=== PATIENT | male | born 1980 | race African-American/Black ===

== ENCOUNTER 2021-08-21 23:42 | Observation (INO) | payer SELFPAY ==
[2021-08-22] MEDS ORDERED: Ketorolac Tromethamine 30 MG/ML VIAL ONE (00:23)
[2021-08-22] MEDS ORDERED: Ondansetron PF 4 MG/2 ML Vial ONE ×2 (00:23→14:10)
[2021-08-22 00:44] LABS: #Basophils 0.1 10x3/uL (0.0-0.2); #Eosinphils 0.2 10x3/uL (0.0-0.5); #Monocytes 0.7 10x3/uL (0.0-1.1); %Basophils 0.6 % (0.0-2.0); %Eosinophils 1.4 % (0.0-6.0); %Lymphocytes 19.7 % (18.0-47.0); %Monocytes 6.6 % (0.0-10.0); %Neutrophils 71.4 % (40.0-75.0); Hemoglobin 15.3 g/dL (13.5-17.5); Mean Corpuscular HGB CONC 35.5 g/dL (32.0-36.0); Mean Corpuscular Hemoglobin 29.7 pg (27.0-33.0); Mean Corpuscular Volume 83.5 fl (81.2-95.1); Platelet Count 247 10x3/uL (150-450); RBC Distribution Width 12.9 % (11.5-14.5); Red Blood Cell (RBC) Count 5.16 10x6/uL (4.32-5.72); White Blood Cell (WBC) Count 11.3 10x3/uL (3.5-10.5)
[2021-08-22 00:55] LABS: ALT (SGPT) 6 U/L (8-55); AST (SGOT) 18 U/L (5-34); Albumin 4.3 g/dL (3.5-5.0); Alkaline Phosphatase 47 U/L (40-110); Anion Gap 13 mmol/L (10-20); BUN (Urea Nitrogen) 8 mg/dL (8.9-20.6); Bilirubin, Total 0.6 mg/dL (0.2-1.2); Calc. Creatinine Clearance 0 mL/min (70-130); Calcium 9.1 mg/dL (7.8-10.44); Carbon Dioxide 26 mmol/L (22-29); Chloride 106 mmol/L (98-107); Globulin 2.5 g/dL (2.4-3.5); Glucose 136 mg/dL (70-105); Lipase 27 U/L (8-78); Potassium 3.5 mmol/L (3.5-5.1); Protein, Total 6.8 g/dL (6.0-8.3); Sodium 141 mmol/L (136-145)
[2021-08-22] MEDS ORDERED: Haloperidol Lactate 5 MG/ML VIAL ONE (01:09)
[2021-08-22] MEDS ORDERED: Morphine 4 MG/ML VIAL ONE (02:15)
[2021-08-22 03:16] VITALS: BMI 23.7
[2021-08-22] MEDS ORDERED: Ondansetron PF 4 MG/2 ML Vial IVP PRN (03:28)
[2021-08-22] MEDS ORDERED: Morphine 2 MG/ML VIAL SLOW IVP PRN ×3 (03:28→16:19)
[2021-08-22] MEDS ORDERED: Ketorolac Tromethamine 30 MG/ML VIAL IVP PRN (04:30)
[2021-08-22] MEDS: 1/2 NS w/KCL 20 mEq 1,000 ML IV SCH ×2 (05:03→12:14)
[2021-08-22 05:47] LABS: Magnesium 2.1 mg/dL (1.6-2.6)
[2021-08-22 06:18] LABS: Bilirubin Neg (Negative); Blood, Urine Negative (Negative); Clarity Clear (Clear); Glucose, Urine (Dipstick) Normal (Negative); Ketone, Urine Negative (Negative); Leukocyte Negative (Negative); Nitrite Negative (Negative); Protein, Urine (Dipstick) 15 mg/dl (Neg-Trace); Specific Gravity, Urine 1.015 (1.002-1.036)
[2021-08-22 06:25] LABS: Amphetamine Not Detected (NotDetected); Barbiturates Screen Not Detected (NotDetected); Benzodiazepine Screen Not Detected (NotDetected); Cocaine Metabolite Screen Not Detected (NotDetected); Methadone Not Detected (NotDetected); Methamphetamine Not Detected (NotDetected); Opiate Screen Detected (NotDetected); Oxycodone Screen Not Detected (NotDetected); Phencyclidine (PCP) Detected (NotDetected); THC/Cannabinoid Screen Not Detected (NotDetected); Tricyclic Screen Not Detected (NotDetected)
[2021-08-22 06:34] LABS: Bacteria/HPF None Seen HPF (None Seen); RBC/HPF 0-3 HPF (0-3); Squamous Epithelial 0-3 HPF (0-3); WBC/HPF 0-3 HPF (0-3)
[2021-08-22] MEDS ORDERED: Bupivacaine PF 0.5% 30 ML VIAL ONE (13:23)
[2021-08-22] MEDS ORDERED: EPINEPHrine 1 MG/ML AMP ONE (13:23)
[2021-08-22] MEDS ORDERED: Lidocaine 1% PF 5 ML VIAL ONE (13:26)
[2021-08-22] MEDS ORDERED: PROPOFOL 20 ML ONE (13:26)
[2021-08-22] MEDS ORDERED: Fentanyl 100 MCG/2 ML VIAL ONE ×3 (13:26→14:34)
[2021-08-22] MEDS ORDERED: Rocuronium Bromide 10 MG/ML (10ML VIAL) ONE (13:26)
[2021-08-22] MEDS ORDERED: Midazolam HCl 2 mg/2 ml Vial ONE (13:39)
[2021-08-22 13:56] LABS: SARS-CoV-2 NAA Rapid Test Not Detected (NotDetected)
[2021-08-22] MEDS ORDERED: CEFAZOLIN 1 GM VIAL ONE (13:58)
[2021-08-22] MEDS ORDERED: Dexamethasone 20 MG/5 ML VIAL ONE (14:10)
[2021-08-22] MEDS ORDERED: HYDROcodone/Acetaminophen 5/325 mg Tablet PO PRN ×2 (15:55)
[2021-08-22] MEDS ORDERED: Morphine 4 MG/ML VIAL SLOW IVP PRN (15:55)
[2021-08-22] MEDS ORDERED: Acetaminophen 325 MG TAB PO PRN (15:55)
[2021-08-22 19:30] LABS: Anion Gap 11 mmol/L (10-20); BUN (Urea Nitrogen) 8 mg/dL (8.9-20.6); Calc. Creatinine Clearance 82 mL/min (70-130); Calcium 9.2 mg/dL (7.8-10.44); Carbon Dioxide 27 mmol/L (22-29); Chloride 104 mmol/L (98-107); Glucose 124 mg/dL (70-105); Potassium 4.1 mmol/L (3.5-5.1); Sodium 138 mmol/L (136-145)
[2021-08-22] MEDS ORDERED: Sodium Chloride 0.9% 500 ML IV SCH (20:30)
[2021-08-22 20:47] VITALS: BP 138/75; TEMP 98.3
[2021-08-22] MEDS ORDERED: Enoxaparin Sodium 40 MG/0.4 ML SYRINGE SC SCH (21:00)
== END 2021-08-22 21:00 | disposition home or self-care (01) ==
LOC: CSHERS 23:42 → CSHTELE 08-22 03:11
PROVIDERS: ADMIT Family Medicine; ATTEND Physician Assistant
PROC: 0FT44ZZ Resection of Gallbladder, Percutaneous Endoscopic Approach (ICD-10-PCS; principal; 2021-08-22)
DX: K80.10 Calculus of gallbladder with chronic cholecystitis without obstruction (principal); Z20.822 Contact with and (suspected) exposure to COVID-19
CPT/HCPCS: 76705; 80053; 80306; 81001; 83690; 83735; 85025; 88304; 96374; 96375; C1713; G0378; J0171; J0690; J1100; J1630; J1885; J2250; J2270; J2405; J2704; J3010; J3480; J7030; S0020; U0002

== ENCOUNTER 2022-12-06 06:45 | Emergency (ER) | payer SELFPAY ==
[2022-12-06] MEDS ORDERED: Acetaminophen 500 MG TAB ONE (07:51)
== END 2022-12-06 08:34 | disposition home or self-care (01) ==
LOC: CSHERS 06:45
DX: S06.0XAA Concussion with loss of consciousness status unknown, initial encounter (principal); W22.8XXA Striking against or struck by other objects, initial encounter
CPT/HCPCS: 70450